=== PATIENT | male | born 1985 | race African-American/Black ===

== ENCOUNTER 2020-02-17 06:28 | Emergency (ER) | payer SELFPAY ==
[~2020-02-17] VITALS: Ht 162.6 cm; Wt 65.8 kg
[2020-02-17] MEDS ORDERED: DOXYCYCLINE HY100 MG PO (06:50)
[2020-02-17] MEDS ORDERED: LIDOCAINE HCL 1% LOCAL INJ 20 ML VIAL ONE (06:52)
--- NOTE | 2020-02-17 06:58 | Emergency Department Note ---
History of Present Illnes History of Present Illness Chief Complaint: Extremity Trauma/Pain History of Present Illness This is a 34 year old male Chief Complaint Comment 34 Y/O MALE PT AAOX3 PRESENTS TO ED WITH APPROX 5CM X 5CM RAISED, RED SITE TO LEFT THIGH X3 DAYS;. 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 Any updates have been documented here. Past Medical History Recent Fever: No Clinical Suspicion of Infectio: Yes New/Unexplained Change in Ment: No Past Medical History: None Past Surgical History: None Social History Smoking Cessation: Never Smoker Counseling Performed: No Alcohol Use: None Any Illegal Drug Use: No Other Any Pre-Existing Lines (PICC,: No Review of Systems Review of Systems Constitutional: Reports no symptoms EENTM: Reports no symptoms Cardiovascular: Reports no symptoms Respiratory: Reports no symptoms Gastrointestinal: Reports no symptoms Genitourinary: Reports no symptoms Musculoskeletal: Reports no symptoms Integumentary: Reports lesions (Abscess L thigh) Neurological: Reports no symptoms Psychological: Reports no symptoms Endocrine: Reports no symptoms Hematological/Lymphatic: Reports no symptoms Physical Exam Related Data Allergies: Coded Allergies: No Known Allergies (Unverified , 02/17/20) Triage Vital Signs Vital Signs Date Time Temp Pulse Resp B/P (MAP) Pulse Ox O2 Delivery O2 Flow Rate FiO2 02/17/20 06:35 98.4 89 17 137/87 100 Room Air Physical Exam CONSTITUTIONAL HENT EYES NECK PULMONARY CARDIOVASCULAR GASTROINTESTINAL GENITOURINARY SKIN MUSCULOSKELETAL NEUROLOGICAL PSYCHOLOGICAL Procedures Procedures Procedure: Abscess drainage L thigh. 11 blade used with 1% lidocaine. Scant drainage expressed Assessment & Plan Medical Decision Making [facility] 34 y.o M with abscess to L thigh. Drained and will Rx Doxy. he will f/u w/ PCP or return to ED for new/worsening symptoms. Patient appropriate for DC. Reassessment Reassessment time: 06:53 Reassessment Well appearing, NAD Assessment & Plan Final Impression: (1) Abscess Depart Disposition: HOME, SELF-CARE Last Vital Signs Date Time Temp Pulse Resp B/P (MAP) Pulse Ox O2 Delivery O2 Flow Rate FiO2 02/17/20 06:35 98.4 89 17 137/87 100 Room Air Home Meds Active Scripts Doxycycline Hyclate (DOXYCYCLINE HYCLATE) 100 Mg Capsule, 100 MG PO BID, #20 0 Refills Prov:LOUANN HULL MD 02/17/20 Medications in the ED Lidocaine HCl 20 ml STK-MED ONCE .ROUTE ; Start 02/17/20 at 06:52; Stop 02/17/20 at 06:47; Status DC LOUANN HULL MD Feb 17, 2020 06:58
--- OUTSIDE RECORDS SUMMARY | 2020-02-17 07:11 | XMS REPORT | Continuity of Care Document ---
Author Author [facility] t Organization [facility] Address [address] [place] [address] Phone Unavailable Care Team Providers Care It Software Engineer Name Role Phone Unavailable Unavailable Payers Payer Name Policy Type Policy Number Effective Date Expiration Date S ource Problems This patient has no known problems. Allergies, Adverse Reactions, Alerts Allergy Name Allergy Type Status Severity Reaction(s) Onset Date Inacti ve Date Treating Clinician Comments Source No Known Allergies DA Active U 2019-06-26 00:00:00 [facility] No Known Allergies DA Active U 2019-04-28 00:00:00 [facility] No Known Allergies DA Active U 2017-06-08 00:00:00 [facility] Medications This patient has no known medications. Procedures This patient has no known procedures. Results Test Description Test Time Test Comments Results Result Comments Source - XR C-SPINE 2-3 VIEWS 2019-04-28 20:47:00 FAX: Jorge A Wyatt NP [phone] [place]: St: REG -- Name: RASHAAD DURBIN [employer] : 1985 Age/S: 33/M [address] [facility] Unit #: [id number] Loc: [place] [address] Phys: Jorge A Wyatt NP Acct: [id number] Dis Date: Status: REG ER PHONE #: [phone] Exam Date: 04/28/20192009 FAX #: [phone] Reason: FALL EXAMS: CPT CODE: [id number] XR C-SPINE 2-3 VIEWS 93124 HISTORY: Fall and pain. COMPARISON: None available. T-spine series, 3 views: No acute fracture or dislocation. Vertebral body heights are maintained. Disc spaces are preserved. IMPRESSION: No acute fracture or dislocation. Vertebral body heights are maintained. No paravertebral lesions. L- spine series, 3 views: No acute fracture or dislocation. Vertebral body heights are maintained. Disc spaces are preserved. Mild lumbarization of the S1 vertebral body with spina bifida occulta of S1 and S2 vertebral bodies. Disc spaces are preserved. IMPRESSION: No acute fracture or dislocation. Vertebral body heights are maintained. 3 views of the cervical spine: No acute fracture or dislocation. Vertebral body heights are maintained. Disc spaces are preserved. No prevertebral soft tissue swelling. Lateral masses are well marginated. Uncovertebral joints are preserved. Lung apices are clear. IMPRESSION: No acute fracture or dislocation. Vertebral body heights are maintained. The dens is slightly limited due to overlap with the occiput. 2 views of the right leg: No acute fracture or dislocation. Ankle mortise is preserved. Knee joint is preserved. No osteochondral lesions. Mineralization and soft tissues are normal. 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 Location: . at 2046 Reported and signed by: Kirk Baeza M.D. 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 COMPARISON: None available. T-spine series, 3 views: No acute fracture or dislocation. Vertebral body heights are maintained. Disc spaces are preserved. IMPRESSION: No acute fracture or dislocation. Vertebral body heights are maintained. No paravertebral lesions. L- spine series, 3 views: No acute fracture or dislocation. Vertebral body heights are maintained. Disc spaces are preserved. Mild lumbarization of the S1 vertebral body with spina bifida occulta of S1 and S2 vertebral bodies. Disc spaces are preserved. IMPRESSION: No acute fracture or dislocation. Vertebral body heights are maintained. 3 views of the cervical spine: No acute fracture or dislocation. Vertebral body heights are maintained. Disc spaces are preserved. No prevertebral soft tissue swelling. Lateral masses are well marginated. Uncovertebral joints are preserved. Lung apices are clear. IMPRESSION: No acute fracture or dislocation. Vertebral body heights are maintained. The dens is slightly limited due to overlap with the occiput. 2 views of the right leg: No acute fracture or dislocation. Ankle mortise is preserved. Knee joint is preserved. No osteochondral lesions. Mineralization and soft tissues are normal. 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 Location: . at 2047 Reported and signed by: Kirk Baeza M.D. 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 COMPARISON: None available. T-spine series, 3 views: No acute fracture or dislocation. Vertebral body heights are maintained. Disc spaces are preserved. IMPRESSION: No acute fracture or dislocation. Vertebral body heights are maintained. No paravertebral lesions. L- spine series, 3 views: No acute fracture or dislocation. Vertebral body heights are maintained. Disc spaces are preserved. Mild lumbarization of the S1 vertebral body with spina bifida occulta of S1 and S2 vertebral bodies. Disc spaces are preserved. IMPRESSION: No acute fracture or dislocation. Vertebral body heights are maintained. 3 views of the cervical spine: No acute fracture or dislocation. Vertebral body heights are maintained. Disc spaces are preserved. No prevertebral soft tissue swelling. Lateral masses are well marginated. Uncovertebral joints are preserved. Lung apices are clear. IMPRESSION: No acute fracture or dislocation. Vertebral body heights are maintained. The dens is slightly limited due to overlap with the occiput. 2 views of the right leg: No acute fracture or dislocation. Ankle mortise is preserved. Knee joint is preserved. No osteochondral lesions. Mineralization and soft tissues are normal. PAGE 1 Signed Report (CONTINUED) FAX: Jorge A Wyatt NP [phone] [place]: St: REG Name: RASHAAD DURBIN [employer] : 1985 Age/S: 33/M [address] [facility] Unit #: [id number] Loc: [place] [address] Phys: Jorge A Wyatt NP Acct: [id number] Dis Date: Status: REG ER PHONE #: [phone] Exam Date: 04/28/20192009 FAX #: [phone] Reason: FALL EXAMS: CPT CODE: [id number] XR TIBIA/FIBULA 2 [place] [address] <Continued> IMPRESSION: No acute fracture or dislocation. Location: . at 2046 Reported and signed by: Kirk Baeza M.D. CC: Jorge A Wyatt NP Technologist: Anna Hurst(Asha) Trnscrd Date/Time/By: 04/28/2019 (2046) : By: [email or web address] Orig Print D/T: S: 04/28/2019 (2049) PAGE 2 Signed Report - XR T-SPINE 3 VIEWS 2019-04-28 20:47:00 FAX: Jorge A Wyatt NP [phone] [place]: St: REG -- Name: RASHAAD DURBIN [facility] : 1985 Age/S: 33/M [address] [facility] Unit #: [id number] Loc: [place] [address] Phys: Jorge A Wyatt NP Acct: [id number] Dis Date: Status: REG ER PHONE #: [phone] Exam Date: 04/28/20192009 FAX #: [phone] Reason: FALL EXAMS: CPT CODE: [id number] XR T-SPINE 3 VIEWS 28269 HISTORY: Fall and pain. COMPARISON: None available. T-spine series, 3 views: No acute fracture or dislocation. Vertebral body heights are maintained. Disc spaces are preserved. IMPRESSION: No acute fracture or dislocation. Vertebral body heights are maintained. No paravertebral lesions. L- spine series, 3 views: No acute fracture or dislocation. Vertebral body heights are maintained. Disc spaces are preserved. Mild lumbarization of the S1 vertebral body with spina bifida occulta of S1 and S2 vertebral bodies. Disc spaces are preserved. IMPRESSION: No acute fracture or dislocation. Vertebral body heights are maintained. 3 views of the cervical spine: No acute fracture or dislocation. Vertebral body heights are maintained. Disc spaces are preserved. No prevertebral soft tissue swelling. Lateral masses are well marginated. Uncovertebral joints are preserved. Lung apices are clear. IMPRESSION: No acute fracture or dislocation. Vertebral body heights are maintained. The dens is slightly limited due to overlap with the occiput. 2 views of the right leg: No acute fracture or dislocation. Ankle mortise is preserved. Knee joint is preserved. No osteochondral lesions. Mineralization and soft tissues are normal. PAGE 1 Signed Report (CONTINUED) FAX: Jorge A Wyatt NP [phone] [place]: St: REG Name: RASHAAD DURBIN [employer] : 1985 Age/S: 33/M [facility] Unit #: [id number] Loc: [place] [address] Phys: Jorge A Wyatt NP Acct: [id number] Dis Date: Status: REG ER PHONE #: [phone] Exam Date: 04/28/20192009 FAX #: [phone] Reason: FALL EXAMS: CPT CODE: [id number] XR T-SPINE 3 VIEWS 17325 <Continued>
== END 2020-02-17 07:15 | disposition home or self-care (01) ==
LOC: ER 06:51
DX: L02.416 Cutaneous abscess of left lower limb (principal)
CPT/HCPCS: 10060; 99283; J2001